=== PATIENT | male | born 1980 | race American Indian/Alaskan Native ===

== ENCOUNTER 2020-02-04 07:43 | Emergency (ER) | payer SELFPAY ==
[2020-02-04 07:51] VITALS: BP 130/84
[2020-02-04 08:54] LABS: Alanine Aminotransferase 18 units/L (7-56); Albumin 4.2 g/dL (3.9-5); BUN/Creatinine Ratio 10; Blood Urea Nitrogen 8 mg/dL (9-20); Calcium 9.8 mg/dL (8.4-10.2); Hemolysis Index 14
[2020-02-04 08:57] LABS: Hematocrit 42.2 % (35.5-45.6); Hemoglobin 14.1 gm/dl (11.8-15.2); Mean Corpuscular HGB Conc 33 % (32-34); Mean Corpuscular Volume 94 fl (84-94); Platelet Count 277 K/mm3 (140-440); Red Blood Count 4.49 M/mm3 (3.65-5.03); Red Cell Distribution Width 14.1 % (13.2-15.2)
[2020-02-04] MEDS ORDERED: ONDANSETRON 4 MG/2 ML INJ IV ONE (10:43)
[2020-02-04] MEDS ORDERED: DICYCLOMINE 20 MG/2 ML INJ IM ONE (10:43)
[2020-02-04] MEDS ORDERED: KETOROLAC 30 MG/1 ML INJ IV ONE (10:43)
[2020-02-04] MEDS ORDERED: SODIUM CHLORIDE 0.9% 1000 ML 1,000 ML IV ONE (10:43)
--- NOTE | 2020-02-04 10:46 | Emergency Department Report ---
ED N/V/D HPI - General Chief complaint: Abdominal Pain Stated complaint: ABD PAIN, BLEEDING PUI?: No Time Seen by Provider: 02/04/20 10:40 Source: patient Mode of arrival: Ambulatory Limitations: No Limitations - History of Present Illness Initial comments: Patient is a 39-year-old F Syrian male with no significant past medical history who is presenting with abdominal pain. Patient states that abdominal pain is been progressively worsening over the last 4 days. Pain is located in the left lower quadrant and he states it is a soreness is very tender with palpation. Patient states he has subjective fevers 2 days ago with chills. Patient is also complaining of nausea and vomiting. Last episode of vomiting was approximately 3 hours ago. Patient states up until yesterday was having some constipation and difficulty with having bowel movements however now he states that small amounts of stool being produced and there is blood on the tissue when he wipes. He denies having seen blood filling up the toilet. Patient denies cough congestion at this time - Related Data Previous Rx's Medication Instructions Recorded Last Taken Type Dicyclomine [Bentyl] 20 mg PO QID #10 tablet 02/04/20 Unknown Rx Famotidine [Pepcid] 20 mg PO BID #20 tablet 02/04/20 Unknown Rx Hydrocort/Pramoxine [Proctofoam-Hc] 10 gm NC BID #1 can 02/04/20 Unknown Rx Ondansetron [Zofran Odt] 4 mg PO Q8HR #10 tab.rapdis 02/04/20 Unknown Rx traMADoL [Ultram] 50 mg PO Q6HR PRN #12 tablet 02/04/20 Unknown Rx Allergies Allergy/AdvReac Type Severity Reaction Status Date / Time No Known Allergies Allergy Verified 02/04/20 07:53 ED Review of Systems ROS: Stated complaint: ABD PAIN, BLEEDING Other details as noted in HPI Comment: All other systems reviewed and negative ED Past Medical Hx - Past Medical History Previous Medical History?: Yes Hx Hypertension: Yes - Surgical History Past Surgical History?: No - Social History Smoking Status: Never Smoker - Medications Home Medications: Home Medications Medication Instructions Recorded Confirmed Last Taken Type Dicyclomine [Bentyl] 20 mg PO QID #10 tablet 02/04/20 Unknown Rx Famotidine [Pepcid] 20 mg PO BID #20 tablet 06/02/20 Unknown Rx Hydrocort/Pramoxine [Proctofoam-Hc] 10 gm NC BID #1 can 02/04/20 Unknown Rx Ondansetron [Zofran Odt] 4 mg PO Q8HR #10 tab.rapdis 02/04/20 Unknown Rx traMADoL [Ultram] 50 mg PO Q6HR PRN #12 tablet 02/04/20 Unknown Rx ED Physical Exam - General Limitations: No Limitations General appearance: alert, in no apparent distress - Head Head exam: Present: atraumatic, normocephalic - Eye Eye exam: Present: normal appearance, PERRL, EOMI - ENT ENT exam: Present: mucous membranes moist - Neck Neck exam: Present: normal inspection - Respiratory Respiratory exam: Present: normal lung sounds bilaterally. Absent: respiratory distress, wheezes, rales - Cardiovascular Cardiovascular Exam: Present: regular rate, normal rhythm, normal heart sounds. Absent: systolic murmur, diastolic murmur, rubs, gallop - GI/Abdominal GI/Abdominal exam: Present: soft, tenderness (Left upper and lower quadrant), gu arding, normal bowel sounds. Absent: distended, rebound - Rectal Rectal exam: Present: deferred - Extremities Exam Extremities exam: Present: normal inspection - Back Exam Back exam: Present: normal inspection - Neurological Exam Neurological exam: Present: alert, oriented X3 - Psychiatric Psychiatric exam: Present: normal affect, normal mood - Skin Skin exam: Present: warm, dry, intact, normal color. Absent: rash ED Course Vital Signs 02/04/20 02/04/20 07:48 07:50 Temperature 98.4 F 98.4 F Pulse Rate 103 H 100 H Respiratory 18 18 Rate Blood Pressure 130/84 130/84 O2 Sat by Pulse 98 97 Oximetry - Reevaluation(s) Reevaluation #1: 02/04/20 10:45 Patient's laboratory studies have been reviewed and does show that he has some mild dehydration. Sodium and chloride levels are slightly decreased. Patient be started on IV fluids. Patient is exquisitely tender with guarding in the left lower quadrant. Am suspicious of colitis or diverticulitis in this patient especially since the patient has seen some blood per rectum. CT of the abdomen pelvis is been ordered at this time. ED Medical Decision Making - Lab Data Result diagrams: 02/04/20 08:01 02/04/20 08:01 - Radiology Data [facility] [address] [place] [address] Cat Scan Report Signed Patient: DAVID SPAIN MR#: [id number] 73 : 1980 Acct:[id number] Age/Sex: 39 / M ADM Date: 02/04/20 Loc: ED Attending Dr: Ordering Physician: NAVJOT MOSES MD Date of Service: 02/04/20 Procedure(s): CT abdomen pelvis w con Accession Number(s): [id number] cc: NAVJOT MOSES MD CT ABDOMEN AND PELVIS WITH IV CONTRAST INDICATION: MAIN: NVD fever LLQ pain x 4 days. COMPARISON: None available. TECHNIQUE: All CT scans at this facility use dose modulation, automated exposure control, iterative reconstruction or weight based dosing, when appropriate, to reduce radiation dose to as low as reasonably achievable. FINDINGS: Lung Bases: No significant abnormality. Skeletal System: No acute abnormality. ABDOMEN: Liver: No significant abnormality. Gallbladder: No significant abnormality. Bile Ducts: No significant abnormality. Pancreas: No significant abnormality. Spleen: No significant abnormality. Adrenals: No significant abnormality. Right Kidney: No significant abnormality. Left Kidney: No significant abnormality. Upper GI tract: No significant abnormality. Lymph Nodes: No significant adenopathy. Aorta: No significant abnormality. Additional Findings: No significant abnormality. PELVIS: Colon: No acute abnormality. Urinary Bladder and Distal Ureters: No significant abnormality. Appendix: No significant abnormality. Lymph Nodes: No significant adenopathy. Additional Findings: None. IMPRESSION: 1. No acute process in the abdomen or pelvis. 2 Signer Name: Pavel Duenas MD Signed: 02/04/2020 11:42 AM Workstation Name: [id number] - Medical Decision Making Patient is a 39-year-old F Syrian male who is presenting with nausea vomiting and subjective fevers. Patient has had some crampy abdominal pain with tried to have bowel movements. Patient states he has been straining with his bowel movements which is likely the cause of the patient's scant amount of bleeding that is noted while wiping. Patient likely with a small internal hemorrhoid. CT is nonremarkable. Although there is no obvious diverticulitis or colitis seen on CT I am still concerned about a subclinical case of colitis that is starting. The patient is gastroenteritis patient will be started on Cipro and Flagyl and also be given meds for symptomatic relief will be discharged home. Critical care attestation.: If time is entered above; I have spent that time in minutes in the direct care of this critically ill patient, excluding procedure time. ED Disposition Clinical Impression: Infectious gastroenteritis Disposition: - TO HOME OR SELFCARE Is pt being admited?: No Does the pt Need Aspirin: No Condition: Stable Instructions: Gastroenteritis (ED) Referrals: [facility] [Provider Group] - 3-5 Days Time of Disposition: 12:13
--- NOTE | 2020-02-04 11:47 | Cat Scan Report ---
CT ABDOMEN AND PELVIS WITH IV CONTRAST INDICATION: MAIN: NVD fever LLQ pain x 4 days. COMPARISON: None available. TECHNIQUE: All CT scans at this facility use dose modulation, automated exposure control, iterative reconstructi on or weight based dosing, when appropriate, to reduce radiation dose to as low as reasonably achieva ble. FINDINGS: Lung Bases: No significant abnormality. Skeletal System: No acute abnormality. ABDOMEN: Liver: No significant abnormality. Gallbladder: No significant abnormality. Bile Ducts: No significant abnormality. Pancreas: No significant abnormality. Spleen: No significant abnormality. Adrenals: No significant abnormality. Right Kidney: No significant abnormality. Left Kidney: No significant abnormality. Upper GI tract: No significant abnormality. Lymph Nodes: No significant adenopathy. Aorta: No significant abnormality. Additional Findings: No significant abnormality. PELVIS: Colon: No acute abnormality. Urinary Bladder and Distal Ureters: No significant abnormality. Appendix: No significant abnormality. Lymph Nodes: No significant adenopathy. Additional Findings: None. IMPRESSION: 1. No acute process in the abdomen or pelvis. 2 Signer Name: Pavel Duenas MD Signed: 02/04/2020 11:42 AM Workstation Name: [id number]
[2020-02-04 13:25] LABS: Band Neutrophils # (Manual) 0.3 K/mm3; Basophils % (Manual) 0 % (0.0-1.8); Eosinophils % (Manual) 0 % (0.0-4.3); Total Cells Counted 100
[2020-02-04 13:26] LABS: Platelet Estimate Consistent w Auto; RBC Morphology Normal
== END 2020-02-04 12:42 | disposition home or self-care (01) ==
LOC: ED 07:43
DX: A09 Infectious gastroenteritis and colitis, unspecified (principal); R11.2 Nausea with vomiting, unspecified; I10 Essential (primary) hypertension; Z79.899 Other long term (current) drug therapy
CPT/HCPCS: 36415; 74177; 80053; 85007; 85025; 96361; 96372; 96374; 96375; 99284; J0500; J1885; J2405; J7030; Q9967

== ENCOUNTER 2022-04-30 00:38 | Emergency (ER) | payer SELFPAY ==
[2022-04-30] MEDS ORDERED: SODIUM CHLORIDE 0.9% IRR 500 ML BOTTLE IR ONE (00:41)
[2022-04-30] MEDS ORDERED: LIDOCAINE (1%) 10 MG/1 ML VIAL 20 ML MDV INFILTRATI ONE (00:41)
[2022-04-30] MEDS ORDERED: TETANUS,DIPH,PERTUSS(ACELL) VACCINE 0.5 ML SYRINGE IM ONE (00:41)
--- NOTE | 2022-04-30 00:43 | Event Note ---
Date: 04/30/22 Verbal report received from emergency medical services. EMS documentation not available at time of chart dictation The patient was evaluated in the emergency department for symptoms described in the history of present illness. He/she was evaluated in the context of the global COVID-19 pandemic, which necessitated consideration that the patient might be at risk for infection with the virus that causes COVID-19. Institutional protocols and algorithms that pertain to the evaluation of patients at risk for COVID-19 are in a state of rapid change based on information released by regulatory bodies including the CDC and federal and state organizations. These policies and algorithms were followed during the patient's care in the emergency department. Please note that these policies, procedures and recommendations changed on a rapid basis. Medical screening examination note: The patient is a 41-year-old gentleman, who was reported to be intoxicated, and was found down in a parking lot, after presumably consuming alcohol. Natalio Xavier called 911. As per EMS, patient intoxicated. Patient endorses facial pain and lacerations. He is not homicidal or suicidal. He believes he has been consuming alcohol. Patient protecting airway and moving 4 extremities. EMS verbally reports unremarkable vital signs. Obtain CT scan brain, facial bones and C-spine. Set up for laceration repair, administer tetanus vaccination, and obtain appropriate laboratory studies. Placed patient on quality assurance monitor, aspiration precautions, n.p.o., head of bed elevation, detailed history and physical to be performed by myself or oncoming provider. Patient protecting airway, phonating complete sentences, mildly anxious, but otherwise did not appear to be any acute distress
[2022-04-30 01:15] LABS: Basophils % (Auto) 0.4 % (0.0-1.8); Eosinophils % (Auto) 0.2 % (0.0-4.3); Hematocrit 45.9 % (35.5-45.6); Hemoglobin 15.2 gm/dl (11.8-15.2); Lymphocytes # (Auto) 1.9 K/mm3 (1.2-5.4); Lymphocytes % (Auto) 18.3 % (13.4-35.0); Mean Corpuscular HGB Conc 33 % (32-34); Mean Corpuscular Volume 96 fl (84-94); Monocytes # (Auto) 0.8 K/mm3 (0.0-0.8); Monocytes % (Auto) 7.9 % (0.0-7.3); Platelet Count 219 K/mm3 (140-440); Red Cell Distribution Width 13.9 % (13.2-15.2)
[2022-04-30 01:25] LABS: Alanine Aminotransferase 25 units/L (7-56); Albumin 4.4 g/dL (3.9-5); BUN/Creatinine Ratio 6; Blood Urea Nitrogen 6 mg/dL (9-20); Calcium 9.3 mg/dL (8.4-10.2); Hemolysis Index 28; INR 0.86 (0.87-1.13)
[2022-04-30 01:26] LABS: Partial Thromboplastin Time 25.2 Sec. (24.2-36.6)
--- NOTE | 2022-04-30 01:38 | Emergency Department Report ---
ED General Adult HPI - General Chief complaint: Fall Stated complaint: ETOH/LACERATION TO RT CHEEK Time Seen by Provider: 04/30/22 00:50 Source: patient, EMS (Verbal report received from emergency medical services. EMS documentation not available at time of chart dictation ), RN notes reviewed Mode of arrival: Ambulatory Limitations: Other (Alcohol intoxication) - History of Present Illness Initial comments: The patient was evaluated in the emergency department for symptoms described in the history of present illness. He/she was evaluated in the context of the global COVID-19 pandemic, which necessitated consideration that the patient might be at risk for infection with the virus that causes COVID-19. Institutional protocols and algorithms that pertain to the evaluation of patients at risk for COVID-19 are in a state of rapid change based on information released by regulatory bodies including the CDC and federal and state organizations. These policies and algorithms were followed during the patient's care in the emergency department. Please note that these policies, procedures and recommendations changed on a rapid basis. The patient is a pleasant and cooperative 41-year-old gentleman, with a history of depression and alcoholism. He is brought to the hospital by emergency medical services. As per verbal report from EMS, a [facility] called 911 because the patient was sitting down in a parking lot, or laying down with his face down. The patient does not remember falling. He endorses right- sided facial abrasions and lacerations. He has a mild headache. He is remorseful about his alcoholism. He does endorse some depression. He is not homicidal or suicidal. He denies additional injuries and complaints. He endorses that he lives over here in [facility]. He lives close by with family members. Cannot recall last tetanus vaccination. -: unknown Location: head, face Severity scale (0 -10): 0 - Related Data Previous Rx's Medication Instructions Recorded Last Taken Type Dicyclomine [Bentyl] 20 mg PO QID #10 tablet 02/04/20 Unknown Rx Famotidine [Pepcid] 20 mg PO BID #20 tablet 02/04/20 Unknown Rx Hydrocort/Pramoxine [Proctofoam-Hc] 10 gm NE BID #1 can 02/04/20 Unknown Rx Ondansetron [Zofran Odt] 4 mg PO Q8HR #10 tab.rapdis 02/04/20 Unknown Rx Multivitamin with Folic Acid [Cvs 400 mcg PO QDAY #30 tablet 04/30/22 Unknown Rx One Daily Essential Tablet] chlordiazePOXIDE [Librium] 25 mg PO Q6H PRN #25 capsule 04/30/22 Unknown Rx Allergies Allergy/AdvReac Type Severity Reaction Status Date / Time No Known Allergies Allergy Verified 02/04/20 07:53 ED Review of Systems ROS: Stated complaint: ETOH/LACERATION TO RT CHEEK Other details as noted in HPI Constitutional: denies: fever Eyes: other (Facial abrasion). denies: eye discharge ENT: denies: epistaxis Respiratory: denies: cough Cardiovascular: denies: chest pain Gastrointestinal: denies: abdominal pain Musculoskeletal: myalgia Neurological: headache. denies: weakness Psychiatric: depression. denies: auditory hallucinations, visual hallucinations, homicidal thoughts, suicidal thoughts ED Past Medical Hx - Past Medical History Previous Medical History?: Yes Hx Hypertension: Yes Hx Psychiatric Treatment: Yes (Depression) - Surgical History Past Surgical History?: No - Social History Smoking Status: Never Smoker Substance Use Type: Alcohol - Medications Home Medications: Home Medications Medication Instructions Recorded Confirmed Last Taken Type Dicyclomine [Bentyl] 20 mg PO QID #10 tablet 02/04/20 Unknown Rx Famotidine [Pepcid] 20 mg PO BID #20 tablet 02/04/20 Unknown Rx Hydrocort/Pramoxine [Proctofoam-Hc] 10 gm NE BID #1 can 02/04/20 Unknown Rx Ondansetron [Zofran Odt] 4 mg PO Q8HR #10 tab.rapdis 02/04/20 Unknown Rx Multivitamin with Folic Acid [Cvs 400 mcg PO QDAY #30 tablet 04/30/22 Unknown Rx One Daily Essential Tablet] chlordiazePOXIDE [Librium] 25 mg PO Q6H PRN #25 capsule 04/30/22 Unknown Rx ED Physical Exam - General Limitations: Other (Alcohol intoxication) General appearance: appears intoxicated, anxious - Head Head exam: Present: normocephalic, other (There is a right infraorbital 3 cm linear abrasion/laceration.). Absent: atraumatic (There is a right 4 cm cheek laceration.) - Eye Eye exam: Present: EOMI, periorbital swelling, periorbital tenderness, other (Right-sided periorbital swelling and tender). Absent: scleral icterus, conjunctival injection, nystagmus - ENT ENT exam: Present: normal exam, normal orophraynx, mucous membranes moist, normal external ear exam, other (There is no mastoid tenderness. There is no nasal septal hematoma) - Neck Neck exam: Present: normal inspection, full ROM. Absent: tenderness, meningismus - Respiratory Respiratory exam: Present: normal lung sounds bilaterally. Absent: respiratory distress, wheezes, rales, rhonchi, stridor, decreased breath sounds - Cardiovascular Cardiovascular Exam: Present: regular rate, normal rhythm, normal heart sounds. Absent: bradycardia, tachycardia, irregular rhythm, systolic murmur, diastolic murmur, rubs, gallop - GI/Abdominal GI/Abdominal exam: Present: soft. Absent: distended, tenderness, guarding, darron ound, rigid, pulsatile mass - Rectal Rectal exam: Present: normal inspection - exam: Present: normal inspection - Extremities Exam Extremities exam: Present: full ROM, normal capillary refill, other (2+ pulses noted in the bilateral upper and lower extremities. There is no palpable cord. negative Homans sign. Muscular compartments are soft. The pelvis is stable.). Absent: normal inspection (Abrasion noted to the right shoulder), pedal edema, calf tenderness - Back Exam Back exam: Present: normal inspection. Absent: tenderness, CVA tenderness (R), CVA tenderness (L), paraspinal tenderness, vertebral tenderness - Neurological Exam Neurological exam: Present: alert (Alert and oriented to name, month and location), other (No facial droop. Tongue midline. Extraocular movements intact bilaterally. Facial sensation intact to light touch in V1, V2, V3 distribution bilaterally. 5 and a 5 strength in 4 extremities. Sensation intact to light touch in 4 extremities.) - Psychiatric Psychiatric exam: Present: anxious. Absent: homicidal ideation, suicidal ideation - Skin Skin exam: Present: warm, dry, abrasion, ecchymosis. Absent: rash ED Course Vital Signs 04/30/22 04/30/22 04/30/22 00:38 01:04 05:20 Temperature 98 F 97.7 F Pulse Rate 82 95 H Respiratory 18 18 Rate Blood Pressure 141/88 Blood Pressure 116/79 [Left] O2 Sat by Pulse 98 98 Oximetry O2 Sat by Pulse 98 Oximetry [ Digit-Finger] 04/30/22 08:19 Temperature 98.3 F Pulse Rate 95 H Respiratory 16 Rate Blood Pressure Blood Pressure 121/65 [Left] O2 Sat by Pulse 100 Oximetry O2 Sat by Pulse Oximetry [ Digit-Finger] - Reevaluation(s) Reevaluation #1: 04/30/22 02:36 Differential diagnosis, including but not limited to: Multiple facial lacerations, closed head injury, facial bone injury, cervical spine injury, electrolyte derangement, alcohol intoxication Assessment and plan: 41-year-old gentleman, with alcohol intoxication, facial abrasions, and facial lacerations. CT scan brain, cervical spine and facial bones are obtained, do not demonstrate any findings that would require further observation, and his facial lacerations are repaired. His laboratory studies are reviewed, and are nonactionable with the exception of elevated blood alcohol level as expected. This patient does not meet criteria for 1013 hold, and he does not appear to be acutely psychotic He may be discharged when clinically sober, or if and when a sober family member can come by and pick him up. 04/30/22 05:20 Patient in no acute distress. Resting comfortably in stretcher. Care will be transferred to the oncoming ER physician, Dr Marcy Weller, to reassess, and discharge when clinically sober 04/30/22 21:43 - Laceration /Wound Repair Right Medial Face Wound Location: face Wound Length (cm): 4 Wound's Depth, Shape: linear, contused tissue Wound Explored: no foreign body removed Irrigated w/ Saline (ccs): 400 Betadine Prep?: No Anesthesia: 1% Lidocaine Volume Anesthetic (ccs): 5 Wound Debrided: minimal Wound Repaired With: sutures Suture Size/Type: 5:0 (Monofilament, interrupted, nonabsorbable) Number of Sutures: 4 Layer Closure?: No Sterile Dressing Applied?: Yes Right Lateral Face Wound Location: face Wound Length (cm): 3 Wound's Depth, Shape: linear, contused tissue Wound Explored: clean Irrigated w/ Saline (ccs): 400 Betadine Prep?: No Anesthesia: 1% Lidocaine Volume Anesthetic (ccs): 4 Wound Debrided: minimal Wound Repaired With: sutures Suture Size/Type: 5:0 (Monofilament, interrupted, nonabsorbable) Number of Sutures: 3 Layer Closure?: No - Pulse Oximetry Interpretation Digit-Finger Initial Pulse Oximetry Readin O2 Sat by Pulse Oximetry: 98 Actions Taken: none ED Medical Decision Making - Lab Data Result diagrams: 04/30/22 00:56 04/30/22 00:56 Vital Signs 04/30/22 04/30/22 00:38 01:04 Temperature 98 F 97.7 F Pulse Rate 82 95 H Respiratory 18 18 Rate Blood Pressure 141/88 Blood Pressure 116/79 [Left] O2 Sat by Pulse 98 98 Oximetry Lab Results 04/30/22 04/30/22 04/30/22 Range/Units 00:56 00:56 00:56 WBC 10.2 (4.5-11.0) K/mm3 RBC 4.80 (3.65-5.03) M/mm3 Hgb 15.2 (11.8-15.2) gm/dl Hct 45.9 H (35.5-45.6) % MCV 96 H (84-94) fl MCH 32 (28-32) pg MCHC 33 (32-34) % RDW 13.9 (13.2-15.2) % Plt Count 219 (140-440) K/mm3 Lymph % (Auto) 18.3 (13.4-35.0) % Mason % (Auto) 7.9 H (0.0-7.3) % Eos % (Auto) 0.2 (0.0-4.3) % Baso % (Auto) 0.4 (0.0-1.8) % Lymph # (Auto) 1.9 (1.2-5.4) K/mm3 Mason # (Auto) 0.8 (0.0-0.8) K/mm3 Eos # (Auto) 0.0 (0.0-0.4) K/mm3 Baso # (Auto) 0.0 (0.0-0.1) K/mm3 Seg Neutrophils % 73.2 H (40.0-70.0) % Seg Neutrophils # 7.5 (1.8-7.7) K/mm3 PT 12.6 (12.2-14.9) Sec. INR 0.86 L (0.87-1.13) APTT 25.2 (24.2-36.6) Sec. Sodium 147 H (137-145) mmol/L Potassium 4.7 (3.6-5.0) mmol/L Chloride 111.1 H (98-107) mmol/L Carbon Dioxide 26 (22-30) mmol/L Anion Gap 15 mmol/L BUN 6 L (9-20) mg/dL Creatinine 1.0 (0.8-1.3) mg/dL Estimated GFR > 60 ml/min BUN/Creatinine Ratio 6 % Glucose 113 H (75-100) mg/dL Calcium 9.3 (8.4-10.2) mg/dL Magnesium (1.7-2.3) mg/dL Total Bilirubin 0.20 (0.1-1.2) mg/dL AST 36 (5-40) units/L ALT 25 (7-56) units/L Alkaline Phosphatase 66 (35-129) units/L Total Creatine Kinase (55-170) units/L Total Protein 6.6 (6.3-8.2) g/dL Albumin 4.4 (3.9-5) g/dL Albumin/Globulin Ratio 2.0 % Salicylates (2.8-20.0) mg/dL Acetaminophen (10.0-30.0) ug/mL Plasma/Serum Alcohol (0-0.07) % 04/30/22 04/30/22 04/30/22 Range/Units 00:56 00:56 00:56 WBC (4.5-11.0) K/mm3 RBC (3.65-5.03) M/mm3 Hgb (11.8-15.2) gm/dl Hct (35.5-45.6) % MCV (84-94) fl MCH (28-32) pg MCHC (32-34) % RDW (13.2-15.2) % Plt Count (140-440) K/mm3 Lymph % (Auto) (13.4-35.0) % Mason % (Auto) (0.0-7.3) % Eos % (Auto) (0.0-4.3) % Baso % (Auto) (0.0-1.8) % Lymph # (Auto) (1.2-5.4) K/mm3 Mason # (Auto) (0.0-0.8) K/mm3 Eos # (Auto) (0.0-0.4) K/mm3 Baso # (Auto) (0.0-0.1) K/mm3 Seg Neutrophils % (40.0-70.0) % Seg Neutrophils # (1.8-7.7) K/mm3 PT (12.2-14.9) Sec. INR (0.87-1.13) APTT (24.2-36.6) Sec. Sodium (137-145) mmol/L Potassium (3.6-5.0) mmol/L Chloride (98-107) mmol/L Carbon Dioxide (22-30) mmol/L Anion Gap mmol/L BUN (9-20) mg/dL Creatinine (0.8-1.3) mg/dL Estimated GFR ml/min BUN/Creatinine Ratio % Glucose (75-100) mg/dL Calcium (8.4-10.2) mg/dL Magnesium 2.20 (1.7-2.3) mg/dL Total Bilirubin (0.1-1.2) mg/dL AST (5-40) units/L ALT (7-56) units/L Alkaline Phosphatase (35-129) units/L Total Creatine Kinase 538 H (55-170) units/L Total Protein (6.3-8.2) g/dL Albumin (3.9-5) g/dL Albumin/Globulin Ratio % Salicylates < 0.3 L (2.8-20.0) mg/dL Acetaminophen (10.0-30.0) ug/mL Plasma/Serum Alcohol 0.29 H (0-0.07) % 04/30/22 Range/Units 00:56 WBC (4.5-11.0) K/mm3 RBC (3.65-5.03) M/mm3 Hgb (11.8-15.2) gm/dl Hct (35.5-45.6) % MCV (84-94) fl MCH (28-32) pg MCHC (32-34) % RDW (13.2-15.2) % Plt Count (140-440) K/mm3 Lymph % (Auto) (13.4-35.0) % Mason % (Auto) (0.0-7.3) % Eos % (Auto) (0.0-4.3) % Baso % (Auto) (0.0-1.8) % Lymph # (Auto) (1.2-5.4) K/mm3 Mason # (Auto) (0.0-0.8) K/mm3 Eos # (Auto) (0.0-0.4) K/mm3 Baso # (Auto) (0.0-0.1) K/mm3 Seg Neutrophils % (40.0-70.0) % Seg Neutrophils # (1.8-7.7) K/mm3 PT (12.2-14.9) Sec. INR (0.87-1.13) APTT (24.2-36.6) Sec. Sodium (137-145) mmol/L Potassium (3.6-5.0) mmol/L Chloride (98-107) mmol/L Carbon Dioxide (22-30) mmol/L Anion Gap mmol/L BUN (9-20) mg/dL Creatinine (0.8-1.3) mg/dL Estimated GFR ml/min BUN/Creatinine Ratio % Glucose (75-100) mg/dL Calcium (8.4-10.2) mg/dL Magnesium (1.7-2.3) mg/dL Total Bilirubin (0.1-1.2) mg/dL AST (5-40) units/L ALT (7-56) units/L Alkaline Phosphatase (35-129) units/L Total Creatine Kinase (55-170) units/L Total Protein (6.3-8.2) g/dL Albumin (3.9-5) g/dL Albumin/Globulin Ratio % Salicylates (2.8-20.0) mg/dL Acetaminophen 5.0 L (10.0-30.0) ug/mL Plasma/Serum Alcohol (0-0.07) % - EKG Data -: EKG Interpreted by Nv EKG shows normal: sinus rhythm Rate: normal - EKG Data 04/30/22 01:38 The EKG is interpreted at 12: 40 8 AM. Sinus rhythm, rate 98 bpm. Normal axis, normal P wave axis, normal intervals, high left ventricular voltage, and motion artifact. This is not a STEMI. - Radiology Data Radiology results: pending, report reviewed, image reviewed CT cervical spine without contrast INDICATION: Alcohol Intoxication fall and closed head injury. TECHNIQUE: Axial imaging performed through the cervical spine without the use of contrast. Sagittal and coronal reconstructed images were also reviewed. All CT scans at this location are performed using CT dose reduction for ALARA by means of automated exposure control. COMPARISON: None FINDINGS: Alignment: Spinal alignment is normal. Bones: There is no acute osseous abnormality. Mild multilevel discogenic DJD is present. Soft tissues: No acute or significant incidental soft tissue abnormality. IMPRESSION: No acute abnormality. Signer Name: Mele Mckeon MD Signed: 04/30/2022 1:12 AM Workstation Name: [facility] CT facial bones wo con INDICATION / CLINICAL INFORMATION: Alcohol Intoxication fall, facial laceration. TECHNIQUE: CT facial bones without contrast All CT scans at this location are performed using CT dose reduction for ALARA by means of automated exposure control. COMPARISON: None available. FINDINGS: Moderate right periorbital contusion. No facial or orbital fracture is identified. The mandible is intact. IMPRESSION: Moderate right perirectal contusion. No facial fracture identified. Signer Name: Mele Mckeon MD Signed: 04/30/2022 1:14 AM Workstation Name: [facility] CT head without contrast INDICATION : Headache following injury TECHNIQUE: Axial imaging performed from the skull apex through the skull base without the use of contrast. All CT examinations performed at this facility utilize dose modulation, iterative reconstruction or weight-based dosing, when appropriate, to reduce radiation dose to as low as reasonably achievable. COMPARISON: None FINDINGS: No acute intracranial hemorrhage or parenchymal abnormality. Ventricles are normal in size and appear symmetric. Moderate right periorbital contusion.. No acute osseous abnormality. Sinuses and mastoid air cells are clear. IMPRESSION: No acute intracranial abnormality. Moderate right perio rbital contusion Signer Name: Mele Mckeon MD Signed: 04/30/2022 1:10 AM Workstation Name: [facility] Critical care attestation.: If time is entered above; I have spent that time in minutes in the direct care of this critically ill patient, excluding procedure time. ED Disposition Clinical Impression: Alcohol intoxication, Facial laceration, Cheek laceration, Closed head injury Disposition: 01 HOME / SELF CARE / HOMELESS Is pt being admited?: No Does the pt Need Aspirin: No Condition: Good Additional Instructions: Facial laceration sutures should be taken out in the next 5 to 7 days. Wash facial sutures and lacerations with gentle soap and water once every 12-24 hours. May apply [id number] bacitracin to facial laceration sutures, taking care to avoid application to the eye. Recommend that patient not drive, operate motor vehicles for the next 6 months, or until cleared to do so by an outpatient primary care doctor. Take a multivitamin [id number], and avoid consumption of alcohol, tobacco and smoke products. Follow-up with your primary care doctor within the next 7 to 10 days. Please return to the emergency room right away with new pain, worsened pain, migration of pain, projectile vomiting, change in mental status, confusion, inability tolerate liquid feeds, new, worsened or different symptoms not present on the initial emergency room evaluation Please follow-up with an outpatient mental health specialist within the next week. Avoid consumption of alcohol, tobacco, smoke products and recreational drugs. Please return to the emergency room right away with new pain, worsened pain, migration of pain, projectile vomiting, change in mental status, confusion, inability tolerate liquid feeds, new, worsened or different symptoms not present on the initial emergency room evaluation Take the Librium medication as needed for sensation of alcohol withdrawal. professional and Agency Contacts To help [facility] (27/03) [place] Crisis Line: Suicide Prevention Line: Crisis Text Line: Text ``START to 964651 Emergency: 911 Outpatient COMMUNITY Behavioral Health Resources: LUCIA: [facility] [address], [place] [address] [facility] [address] [place] [address] Monday thru Monday - 8am - 5pm Call to schedule an assessment for mental health and substance abuse programs GARCIA: [facility] Address: [address] [place] [address] Monday thru Monday- 7am-2pm [facility] Address: [address] [place] [address] Monday thru Monday: 8:30AM-5PM Prescriptions: Multivitamin with Folic Acid [[facility] One Daily Essential Tablet] 400 mcg PO QDAY #30 tablet chlordiazePOXIDE [Librium] 25 mg PO Q6H PRN #25 capsule PRN Reason: Alcohol Withdrawal Referrals: RENAY OLIVIER MD [Primary Care Provider] - 7-[facility] days [facility] - 3-5 Days [facility]Outside[facility] - 3-5 Days Forms: Work/School Release Form(ED)
--- NOTE | 2022-04-30 02:14 | Cat Scan Report ---
CT head without contrast INDICATION : Headache following injury TECHNIQUE: Axial imaging performed from the skull apex through the skull base without the use of con trast. All CT examinations performed at this facility utilize dose modulation, iterative reconstruct ion or weight-based dosing, when appropriate, to reduce radiation dose to as low as reasonably achiev able. COMPARISON: None FINDINGS: No acute intracranial hemorrhage or parenchymal abnormality. Ventricles are normal in si ze and appear symmetric. Moderate right periorbital contusion.. No acute osseous abnormality. S inuses and mastoid air cells are clear. IMPRESSION: No acute intracranial abnormality. Moderate right periorbital contusion Signer Name: Mele Mckeon MD Signed: 04/30/2022 2:10 AM Workstation Name: [employer]
--- NOTE | 2022-04-30 02:16 | Cat Scan Report ---
CT cervical spine without contrast INDICATION: Alcohol Intoxication fall and closed head injury. TECHNIQUE: Axial imaging performed through the cervical spine without the use of contrast. Sagittal and coronal reconstructed images were also reviewed. All CT scans at this location are performed us ing CT dose reduction for ALARA by means of automated exposure control. COMPARISON: None FINDINGS: Alignment: Spinal alignment is normal. Bones: There is no acute osseous abnormality. Mild multilevel discogenic DJD is present. Soft tissues: No acute or significant incidental soft tissue abnormality. IMPRESSION: No acute abnormality. Signer Name: Mele Mckeon MD Signed: 04/30/2022 2:12 AM Workstation Name: [employer]
--- NOTE | 2022-04-30 02:19 | Cat Scan Report ---
CT facial bones wo con INDICATION / CLINICAL INFORMATION: Alcohol Intoxication fall, facial laceration. TECHNIQUE: CT facial bones without contrast All CT scans at this location are performed using CT dose reduction for ALARA by means of automated exposure control. COMPARISON: None available. FINDINGS: Moderate right periorbital contusion. No facial or orbital fracture is identified. The mandible is in tact. IMPRESSION: Moderate right perirectal contusion. No facial fracture identified. Signer Name: Mele Mckeon MD Signed: 04/30/2022 2:14 AM Workstation Name: [employer]
[2022-04-30 08:21] VITALS: BP 121/65
--- NOTE | 2022-04-30 09:21 | Electrocardiograph Report ---
[facility] Test Date: 2022-04-30 Test Time: 00:48:12 Pat Name: DAVID SPAIN Department: Room: Gender: M Outside Deliverer: : 1980 Requested By: GIRMA BINGHAM Order Number: [id number] Reading MD: Frank Joe Measurements Intervals [place] Rate: 98 P: 65 CO: 171 QRS: 31 QRSD: 67 T: 50 QT: 336 QTc: 430 Interpretive Statements Sinus rhythm No previous ECG available for comparison Electronically Signed On 04-30-2022 9:21:08 EDT by Frank Joe
== END 2022-04-30 09:38 | disposition home or self-care (01) ==
LOC: ED 00:38
DX: S01.81XA Laceration without foreign body of other part of head, initial encounter (principal); I10 Essential (primary) hypertension; F32.9 Major depressive disorder, single episode, unspecified; R79.1 Abnormal coagulation profile; Z72.89 Other problems related to lifestyle; Z79.899 Other long term (current) drug therapy; W18.39XA Other fall on same level, initial encounter; Y93.89 Activity, other specified; Y92.89 Other specified places as the place of occurrence of the external cause; Y99.8 Other external cause status
CPT/HCPCS: 36415; 70450; 70486; 72125; 80053; 80320; 82550; 83735; 85025; 85610; 85730; 90471; 90715; 93005; 99284; G0480